=== PATIENT | male | born 1980 ===

== ENCOUNTER 2018-10-01 14:40 | Emergency (ER) | payer MEDICAID ==
[2018-10-01 14:40] VITALS: BMI 23.8
[2018-10-01 14:51] VITALS: BP 113/75; PULSE 87; RESP 18; TEMP 98.5; O2SAT 99
[2018-10-01] MEDS ORDERED: Lidocaine 1% Inj (20ml) INFIL ONE (15:26)
[2018-10-01] MEDS ORDERED: Tetanus/Diphtheria Toxoids 0.5 ml Syringe IM ONE ×2 (15:26→16:26)
--- NOTE | 2018-10-01 15:35 | C.PDOC ---
History Of Present Illness Patient is a 38 year old male who presents to the ED for a right hand injury that occurred at 0600. Patient states that he accidentally cut himself with a circular saw and could not come in for evaluation soon due to family obligation. Patient denies any finger weakness or numbness, other associated symptoms or injury. R HAND INJURY ONSET @ 0600. ACCID CUT SELF W CIRCULAR SAW. PS UNABLE TO COME FOR EVALUATION SOONER DUE TO FAMILY OBLIGATION. DENIES FINGER WEAK/NUMB, OTHER ASSOC SX OR INJURY EXAM NAD SKIN jagged LAC SIDE OF BASE OF R 5 FINGER/ULNAR ASPECT PROX HAND. AROM WO DIFF, NO GROSS TENDON DEF. NO FB. NEURO INTACT PROLONGED OPEN EXPOSURE OF LAC, NO DRESSING BY PT CANDLES POURER. LOOSE APPROXIMATION, DC ABX Time Seen by Provider: 10/01/18 15:24 Chief Complaint (Nursing): Abnormal Skin Integrity History Per: Patient History/Exam Limitations: no limitations Onset/Duration Of Symptoms: Hrs Current Symptoms Are (Timing): Still Present Location Of Injury: Right: Hand Recent travel outside of the [place]: No Additional History Per: Patient Past Medical History Reviewed: Historical Data, Nursing Documentation, Vital Signs Vital Signs: Last Vital Signs Temp 98.5 F 10/01/18 14:48 Pulse 87 10/01/18 14:48 Resp 18 10/01/18 14:48 BP 113/75 10/01/18 14:48 Pulse Ox 99 10/01/18 14:48 - Medical History PMH: Bipolar Disorder, Depression Denies: Diabetes, Hepatitis, HIV, HTN, Chronic Kidney Disease, Schizophrenia, Seizures, Sexually Transmitted Disease Surgical History: No Surg Hx - [facility] GROUP PSYCHOTHERAPY (01/26/17) Family History: States: Unknown Family Hx - Social History Hx Tobacco Use: No Hx Alcohol Use: Yes Hx Substance Use: Yes (stopped "long time ago") - Immunization History Hx Tetanus Toxoid Vaccination: No Hx Influenza Vaccination: No Hx Pneumococcal Vaccination: No Review Of Systems Except As Marked, All Systems Reviewed And Found Negative. Musculoskeletal: Positive for: Hand Pain (right ) Neurological: Negative for: Weakness (right hand ), Numbness (right hand ) Physical Exam - Physical Exam Appears: Non-toxic, No Acute Distress Skin: Other (jagged LAC SIDE OF BASE OF R 5 FINGER/ULNAR ASPECT PROX HAND. AROM WO DIFF, NO GROSS TENDON DEF. NO FB. ) Cardiovascular: Rhythm Regular Respiratory: Other (NARD) Neurological/Psych: Oriented x3, Normal Speech, Normal Cognition, Other (intact) ED Course And Treatment O2 Sat by Pulse Oximetry: 99 (on RA) Pulse Ox Interpretation: Normal Progress Note: Plan: Keflex 500mg PO. Lidocaine 20ml INFIL. Tenivac 0.5ml IM. PROLONGED OPEN EXPOSURE OF LAC, NO DRESSING BY PT CANDLES POURER. LOOSE APPROXIMATION, DC ABX Laceration - Laceration Repair N Wound Length (In cm): 5 Description Of Wound: Irregular Wound Cleansed With: Betadine, Sterile Saline Anesthesia: Lidocaine 1% Wound Examination: Irrigated With Saline, No FB With Wound Exploration Wound Debridement/Revision: Wound Debrided, Wound Margins Revised Wound Closure: Suture (X 7) Suture Technique And Material Used: Prolene (3.0) Wound Complexity: Simple Disposition Counseled Patient/Family Regarding: Diagnosis, Need For Followup, Rx Given - Disposition Referrals: [facility] [Provider Group] Disposition: HOME/ ROUTINE Disposition Time: 16:07 Condition: IMPROVED Additional Instructions: RETURN 7 DAYS FOR SUTURE REMOVAL. TAKE MOTRIN/TYLENOL NEEDED FOR PAIN. Prescriptions: Cephalexin [cephalexin] 500 mg PO BID #14 cap Instructions: Laceration Repair With Stitches (DC) Forms: [facility] (Bengali), Work Excuse Print Language: FRENCH - Clinical Impression Clinical Impression: Hand laceration, Finger laceration - Scribe Statement The provider has reviewed the documentation as recorded by the Donibkelechi Rodgers All medical record entries made by the Scribe were at my direction and personally dictated by me. I have reviewed the chart and agree that the record accurately reflects my personal performance of the history, physical exam, medical decision making, and the department course for this patient. I have also personally directed, reviewed, and agree with the discharge instructions and disposition.
[2018-10-01] MEDS ORDERED: Lidocaine Hydrochloride 5 ML INJ ONE (15:41)
== END 2018-10-01 16:30 | disposition home or self-care (01) ==
LOC: C.ER 14:40
DX: S61.216A Laceration without foreign body of right little finger without damage to nail, initial encounter (principal); W31.2XXA Contact with powered woodworking and forming machines, initial encounter

== ENCOUNTER 2018-10-15 23:48 | Emergency (ER) | payer MEDICAID ==
[2018-10-15 23:48] VITALS: BMI 23.8
--- NOTE | 2018-10-16 00:16 | C.PDOC ---
History Of Present Illness 38 year old male presents to the ED for evaluation of suicidal ideation with a plan. Patient reports he was drinking and using heroin today. Patient reports he wants to kill himself, stuck a gun against his head. Patient denies HI, h allucinations, other medical complaints at this time. <Irais Grossman - Last Filed: 10/16/18 00:51> History Per: Patient History/Exam Limitations: intoxication Onset/Duration Of Symptoms: Hrs Current Symptoms Are (Timing): Still Present Suicide/Self Injury Attempted (Context): Other Modifying Factor(s): Alcohol, Narcotics Associated Symptoms: Depression, Suicidal Thoughts, Suicidal Plan Recent travel outside of the [place]: No Additional History Per: Patient <Irais Grossman - Last Filed: 10/16/18 00:51> <Shannon Montenegro - Last Filed: 10/16/18 07:03> Time Seen by Provider: 10/16/18 00:16 Chief Complaint (Nursing): Psychiatric Evaluation Past Medical History Reviewed: Historical Data, Nursing Documentation, Vital Signs Vital Signs: Last Vital Signs Temp 98.5 F 10/16/18 00:07 Pulse 73 10/16/18 00:07 Resp 18 10/16/18 00:07 BP 125/79 10/16/18 00:07 Pulse Ox 96 10/16/18 00:07 - Medical History PMH: Bipolar Disorder, Depression Denies: Diabetes, Hepatitis, HIV, HTN, Chronic Kidney Disease, Schizophrenia, Seizures, Sexually Transmitted Disease Surgical History: No Surg Hx - [facility] GROUP PSYCHOTHERAPY (01/26/17) Family History: States: Unknown Family Hx - Social History Hx Tobacco Use: No Hx Alcohol Use: Yes Hx Substance Use: Yes (stopped "long time ago") - Immunization History Hx Tetanus Toxoid Vaccination: No Hx Influenza Vaccination: No Hx Pneumococcal Vaccination: No <Irais Grossman - Last Filed: 10/16/18 00:51> Vital Signs: Last Vital Signs Temp 98.4 F 10/16/18 06:04 Pulse 76 10/16/18 06:04 Resp 16 10/16/18 06:04 BP 110/73 10/16/18 06:04 Pulse Ox 96 10/16/18 06:04 - [facility] GROUP PSYCHOTHERAPY (01/26/17) <Shannon Montenegro - Last Filed: 10/16/18 07:03> Review Of Systems Constitutional: Negative for: Fever, Chills Cardiovascular: Negative for: Chest Pain Respiratory: Negative for: Shortness of Breath Gastrointestinal: Negative for: Nausea, Vomiting, Abdominal Pain Skin: Negative for: Rash Neurological: Negative for: Weakness, Numbness Psych: Positive for: Depression, Suicidal ideation <Irais Grossman - Last Filed: 10/16/18 00:51> Physical Exam - Physical Exam Appears: Non-toxic, No Acute Distress, Other (intoxicated) Skin: Normal Color, Warm, Dry Head: Atraumatic, Normacephalic Eye(s): bilateral: Normal Inspection Neck: Normal ROM, Supple Chest: Symmetrical Cardiovascular: Rhythm Regular Respiratory: Normal Breath Sounds, No Rales, No Rhonchi, No Wheezing Gastrointestinal/Abdominal: Soft, No Tenderness Extremity: Normal ROM, No Tenderness, No Swelling Neurological/Psych: Oriented x3, Normal Speech, Other (calm, cooperative, intoxicated) Gait: Steady <Irais Grossman Last Filed: 10/16/18 00:51> ED Course And Treatment O2 Sat by Pulse Oximetry: 96 (ON RA) Pulse Ox Interpretation: Normal <Irais Grossman Last Filed: 10/16/18 00:51> - Laboratory Results Result Diagrams: 10/16/18 00:48 10/16/18 00:48 Lab Results: Total Bilirubin 0.8 mg/dL (0.2-1.3) 10/16/18 00:48 AST 371 U/L (17-59) H D 10/16/18 00:48 ALT 356 U/L (21-72) H 10/16/18 00:48 Alkaline Phosphatase 111 U/L (38-126) 10/16/18 00:48 Total Protein 9.1 g/dL (6.3-8.3) H 10/16/18 00:48 Albumin 5.0 g/dL (3.5-5.0) 10/16/18 00:48 Globulin 4.1 gm/dL (2.2-3.9) H 10/16/18 00:48 Albumin/Globulin Ratio 1.2 (1.0-2.1) 10/16/18 00:48 Urine Color Straw (YELLOW) 10/16/18 00:48 Urine Clarity Clear (Clear) 10/16/18 00:48 Urine pH 6.0 (5.0-8.0) 10/16/18 00:48 Ur Specific [place] 1.001 (1.003-1.030) L 10/16/18 00:48 Urine Protein Negative mg/dL (NEGATIVE) 10/16/18 00:48 Urine Glucose (UA) Normal mg/dL (Normal) 10/16/18 00:48 Urine Ketones Negative mg/dL (NEGATIVE) 10/16/18 00:48 Urine Blood Negative (NEGATIVE) 10/16/18 00:48 Urine Nitrate Negative (NEGATIVE) 10/16/18 00:48 Urine Bilirubin Negative (NEGATIVE) 10/16/18 00:48 Urine Urobilinogen Normal mg/dL (0.2-1.0) 10/16/18 00:48 Ur Leukocyte Esterase Neg Kory/uL (Negative) 10/16/18 00:48 Progress Note: 7:00- Patient is medically cleared, has been evaluated by crisis counslor Gaye. Pending call back from Dr. Ribeiro. Patient signed out to Dr. Patel pending crisis dispo. <Shannon Montenegro - Last Filed: 10/16/18 07:03> Medical Decision Making Medical Decision Making: Plan: * Labs * UA * Crisis eval * 1:1 Obs <Irais Grossman - Last Filed: 10/16/18 00:51> Disposition - Disposition Disposition Time: 01:00 <Irais Grossman - Last Filed: 10/16/18 00:51> - Disposition Disposition Time: 07:00 <Shannon Montenegro - Last Filed: 10/16/18 07:03> - Disposition Referrals: Non [facility] Provider, [Primary Care Provider] - Condition: STABLE Forms: [facility] (Eritrean) - Clinical Impression Clinical Impression: Suicidal ideation, Alcohol intoxication, Cocaine abuse - Scribe Statement The provider has reviewed the documentation as recorded by the Scribe Frandy Linn All medical record entries made by the Scribe were at my direction and personally dictated by me. I have reviewed the chart and agree that the record accurately reflects my personal performance of the history, physical exam, med [facility] decision making, and the department course for this patient. I have also personally directed, reviewed, and agree with the discharge instructions and disposition. <Irais Grossman - Last Filed: 10/16/18 00:51> Physician Patient Turnover Patient Signed Over To: Shannon Montenegro Handoff Comments: fu labs, dispo <Irais Grossman - Last Filed: 10/16/18 00:51>
[2018-10-16 00:52] LABS: BASO % 0.7 % (0.0-2.0); EOS # 0.1 K/uL (0.0-0.7); HEMOGLOBIN 14.9 g/dL (12.0-18.0); LYMPH # 2.6 K/uL (1.0-4.3); LYMPH % 61.3 % (20.0-40.0); MEAN CELL VOLUME 94.7 fL (80.0-94.0); MEAN CORPUSCULAR HGB CONC 33.8 g/dL (33.0-37.0); MEAN PLATELET VOLUME 7.9 fL (7.2-11.7); MONO # 0.3 K/uL (0.0-0.8); MONO % 6.7 % (0.0-10.0); NEUT # 1.2 K/uL (1.8-7.0); NEUT % 29.3 % (50.0-75.0); NRBC % 0.1 % (0.0-2.0); WHITE BLOOD COUNT 4.2 K/uL (4.8-10.8)
[2018-10-16 00:55] LABS: URINE BILIRUBIN NEGATIVE (NEGATIVE); URINE BLOOD NEGATIVE (NEGATIVE); URINE CLARITY Clear (Clear); URINE COLOR Straw (YELLOW); URINE GLUCOSE (UA) NORMAL (Normal); URINE LEUKOCYTE ESTERASE NEG Leu/uL (Negative); URINE PROTEIN NEGATIVE (NEGATIVE); URINE UROBILINOGEN NORMAL mg/dL (0.2-1.0)
[2018-10-16 01:06] LABS: ALB/GLOB RATIO 1.2 (1.0-2.1); ALT/SGPT 356 U/L (21-72); AST/SGOT 371 U/L (17-59); BLOOD UREA NITROGEN 5 mg/dL (9-20); CALCIUM 9.3 mg/dl (8.6-10.4); GFR NON-AFRICAN AMERICAN > 60
[2018-10-16 01:17] LABS: BARBITURATES, UR NEGATIVE (NEGATIVE); BENZODIAZEPINES, UR NEGATIVE (NEGATIVE); OPIATES, UR NEGATIVE (NEGATIVE); PHENCYCLIDINE, UR NEGATIVE (NEGATIVE)
[2018-10-16 02:19] LABS: RBC 4.65 Mil/uL (4.40-5.90)
[2018-10-16 09:02] VITALS: BP 111/65; PULSE 77; RESP 18; TEMP 99.1; O2SAT 97
== END 2018-10-16 11:22 | disposition home or self-care (01) ==
LOC: C.ER 23:48 → SUPCPDRO 23:48 → C.ER 10-16 11:22
DX: R45.851 Suicidal ideations (principal); F10.129 Alcohol abuse with intoxication, unspecified; F14.10 Cocaine abuse, uncomplicated; Y90.8 Blood alcohol level of 240 mg/100 ml or more